=== PATIENT | male | born 1950 | race Caucasian/White ===

== ENCOUNTER 2018-05-18 00:39 | Emergency (ER) | payer MEDICARE, MEDICAID ==
[~2018-05-18] VITALS: Ht 177.8 cm; Wt 81.6 kg
[2018-05-18] MEDS ORDERED: Morphine Sulfate 4mg/ml Inj (IV USE ONLY) IVP ONE (01:00)
[2018-05-18] MEDS ORDERED: IBUPROFEN600 MG ORAL (01:29)
[2018-05-18] MEDS ORDERED: HYDROCODON-ACE1 EA15 ORAL (01:29)
--- NOTE | 2018-05-18 01:29 | Emergency Room Report ---
History of Present Illness General Chief Complaint: Chest Pain Source: Patient Present Illness HPI Is a 68-year-old male with no past medical history. He presents with chest pain is been ongoing for 4 days. He notices it 4 days ago around the back area. Now is to the front into the upper arm. No fever or chills. Nothing made it better. Nothing made it worse. No exertional component. No shortness of breath. No diaphoresis. Denies any other complaint. Allergies: Coded Allergies: No Known Allergies (Unverified , 05/18/18) Patient History Past Medical History: see triage record, old chart reviewed Past Surgical History: other Pertinent Family History: none Social History: Denies: smoking Immunizations: other Reviewed Nursing Documentation: PMH: Agreed; PSxH: Agreed Nursing Documentation-PMH Past Medical History: No Stated History Review of Systems Eye: Denies: eye pain, blurred vision ENT: Denies: ear pain, nose congestion, throat swelling Respiratory: Denies: cough, shortness of breath Cardiovascular: Reports: chest pain; Denies: palpitations Gastrointestinal: Denies: abdominal pain, diarrhea, nausea, vomiting Musculoskeletal: Denies: back pain, joint pain Skin: Denies: rash Neurological: Denies: headache, numbness Endocrine: Denies: increased thirst, increased urine Hematologic/Lymphatic: Denies: easy bruising All Other Systems: negative except mentioned in HPI Physical Exam Vital Signs Date Time Temp Pulse Resp B/P (MAP) Pulse Ox O2 Delivery O2 Flow Rate FiO2 05/18/18 00:42 98.3 78 18 148/92 97 Room Air 98.2 vitals normal Sp02 EP Interpretation: reviewed, normal General Appearance: well appearing, no apparent distress, alert Head: normocephalic, atraumatic Eyes: bilateral eye PERRL, bilateral eye EOMI ENT: hearing grossly normal, normal pharynx Neck: full range of motion, supple, no meningismus Respiratory: chest non-tender, lungs clear, normal breath sounds Cardiovascular #1: regular rate, rhythm, no murmur Gastrointestinal: normal bowel sounds, non tender, no mass, no organomegaly, no bruit, non-distended Musculoskeletal: back normal, gait/station normal, normal range of motion Psychiatric: mood/affect normal Skin: warm/dry, rash - Patient has a vesicular rash to the left scapular area around the T4 distribution. Medical Decision Making Diagnostic Impression: Primary Impression: Herpes zoster Qualified Codes: B02.9 - Zoster without complications ER Course Patient with noncardiac chest pain secondary to referred pain from shingles. No evidence of ACS, PE, dissection to name a few. EKG unremarkable. Pain not consistent with anginal equivalent. We'll discharge home. He has pass time frame for treatment with antiviral medication. No evidence of any dissemination. EKG Diagnostic Results Rate: normal Rhythm: NSR Rhythm Strip Diag. Results Rhythm Strip Time: 01:28 EP Interpretation: yes Rate: 70 Rhythm: NSR, no PVC's, no ectopy Last Vital Signs Date Time Temp Pulse Resp B/P (MAP) Pulse Ox O2 Delivery O2 Flow Rate FiO2 05/18/18 01:10 78 18 Room Air 05/18/18 00:42 98.3 148/92 97 98.2 Status: improved Disposition: HOME, SELF-CARE Condition: Stable Scripts Ibuprofen* (MOTRIN*) 600 Mg Tablet 600 MG ORAL THREE TIMES A DAY, #30 TAB 0 Refills Prov: SERGO LANE M.D. 05/18/18 Hydrocodone/Acetaminophen 5-325* (HYDROCODONE/ACETAMINOPHEN 5-325*) 1 Each Tablet 1 TAB ORAL Q6H PRN for For Pain, #20 TAB 0 Refills Prov: SERGO LANE M.D. 05/18/18 Additional Instructions: Follow-up with your doctor in 7 days. Return if symptom worsen. SERGO LANE M.D. May 18, 2018 01:29
[2018-05-18 01:51] VITALS: BP 148/92
[2018-05-20] MEDS ORDERED: ZOSTRIX HP56.6 G2 TP (21:50)
[2018-05-20] MEDS ORDERED: BACITRACIN15 GM TOPIC (21:50)
[2018-05-20] MEDS ORDERED: ACYCLOVIR800 MG ORAL (21:50)
--- NOTE | 2018-05-23 16:26 | Cardiology Report ---
APPROVED REPORT EKG Measurement Heart [id number] Normal sinus rhythm Normal ECG
== END 2018-05-18 01:52 | disposition home or self-care (01) ==
LOC: EMR 00:54
DX: B02.9 Zoster without complications (principal)
CPT/HCPCS: 93005; 96374; 96375; 99284; J2270; J2405

== ENCOUNTER 2018-07-22 19:59 | Emergency (ER) | payer MEDICARE, MEDICAID ==
[~2018-07-22] VITALS: Ht 172.7 cm; Wt 86.2 kg
[~2018-07-22 19:59] MED LIST: ACYCLOVIR800 MG ORAL; BACITRACIN15 GM TOPIC; HYDROCODON-ACE1 EA15 ORAL; IBUPROFEN600 MG ORAL; ZOSTRIX HP56.6 G2 TP
[2018-07-22 20:14] VITALS: BP 163/88
[2018-07-22] MEDS ORDERED: NYSTATIN15 GM TOPIC (20:30)
[2018-07-22] MEDS ORDERED: ANTI-ITCH28 G1 TP (20:30)
[2018-07-22] MEDS ORDERED: ACYCLOVIR800 MG ORAL (20:30)
[2018-07-22 20:35] VITALS: BP 163/88
--- NOTE | 2018-07-22 22:28 | Emergency Room Report ---
History of Present Illness General Chief Complaint: Skin Rash/Abscess Source: Patient Present Illness HPI Patient is a 68-year-old male presented after increased bilateral axillary rash. Patient was increased burning sensation to the area. He reports having increased itchiness as well. He had prior history of shingles. He had recently been taking medications which included acyclovir and capsaicin. He denies any fever. He reports having a similar symptoms to both axillas. He denies any fever. He is not known to be diabetic or have HIV. Allergies: Coded Allergies: No Known Allergies (Unverified , 05/18/18) Patient History Past Medical History: see triage record Reviewed Nursing Documentation: PMH: Agreed; PSxH: Agreed Nursing Documentation-PMH Past Medical History: No History, Except For Hx Hypertension: Yes Review of Systems All Other Systems: negative except mentioned in HPI Physical Exam Vital Signs Date Time Temp Pulse Resp B/P (MAP) Pulse Ox O2 Delivery O2 Flow Rate FiO2 07/22/18 20:04 98.1 101 18 163/88 97 Room Air General Appearance: well appearing, no apparent distress, alert, GCS 15 Head: normocephalic, atraumatic ENT: hearing grossly normal, normal voice Neck: full range of motion, supple Respiratory: no respiratory distress, speaking full sentences Musculoskeletal: no calf tenderness Neurologic: normal inspection, alert, oriented x3, responsive, manager agricultural III-XII nml as tested, normal gait Psychiatric: mood/affect normal Skin: no rash Medical Decision Making Diagnostic Impression: Primary Impression: Dermatitis ER Course The patient presented for skin rash. Differential diagnosis included wasn't limited to contact dermatitis, hidradenitis particular, yeast infection and among others. Patient has a benign exam and does not appear to require any further imaging or laboratory testing at this time. The patient appears to have bilateral axillary yeast infection. Patient's acyclovir was refilled because some continued shingles lesion. The patient was given prescription for topical antifungals and steroids. Patient is advised to recheck with his primary care physician in the next few days. Last Vital Signs Date Time Temp Pulse Resp B/P (MAP) Pulse Ox O2 Delivery O2 Flow Rate FiO2 07/22/18 20:35 98.1 18 163/88 97 Room Air 07/22/18 20:04 101 Status: improved Disposition: HOME, SELF-CARE Condition: Stable Scripts Nystatin* (NYSTATIN*) 15 Gm Cream..g. 1 APPLIC TOPIC THREE TIMES A DAY, #30 GM Prov: Kian Cain MD 07/22/18 Hydrocortisone 2% Cream (ANTI-ITCH 2% CREAM) Y Cr 28 GM TP DAILY, #28 GM Prov: Kian Cain MD 07/22/18 Acyclovir* (ZOVIRAX*) 800 Mg Tablet 800 MG ORAL FIVE TIMES A DAY, #35 TAB Prov: Kian Cain MD 07/22/18 Referrals: NON PHYSICIAN (PCP) Patient Instructions: Rash Additional Instructions: Follow up with your doctor with in 1-2 Kian Cain MD Jul 22, 2018 22:28
== END 2018-07-22 20:35 | disposition home or self-care (01) ==
LOC: EMR 20:23
DX: L30.9 Dermatitis, unspecified (principal); I10 Essential (primary) hypertension
CPT/HCPCS: 99283